=== PATIENT | male | born 1985 | race African-American/Black ===

== ENCOUNTER 2025-05-17 10:06 | Emergency (ER) | payer OTHER ==
[~2025-05-17] VITALS: Ht 180.3 cm; Wt 109.0 kg
[2025-05-17 10:13] VITALS: O2SAT 100
[2025-05-17] MEDS: ACETAMINOPHEN 500MG TABLET PO ONE (11:18)
[2025-05-17] MEDS: CYCLOBENZAPRINE 10MG TABLET PO ONE (11:18)
[2025-05-17] MEDS: LIDOCAINE 5% PATCH TOP STA (11:18)
[2025-05-17] MEDS ORDERED: IBUP-1455 MT (12:46)
[2025-05-17] MEDS ORDERED: CYCL10TA21 MT (12:46)
[2025-05-17] MEDS ORDERED: LIDO700A30 TP (12:46)
[2025-05-17 12:50] VITALS: BP 122/87; PULSE 69; RESP 15; TEMP 37.1; O2SAT 100
== END 2025-05-17 12:54 | disposition home or self-care (01) ==
LOC: ER 10:22
DX: S80.812A Abrasion, left lower leg, initial encounter (principal); S09.90XA Unspecified injury of head, initial encounter; W22.8XXA Striking against or struck by other objects, initial encounter; Y93.89 Activity, other specified; Y92.410 Unspecified street and highway as the place of occurrence of the external cause; Y99.8 Other external cause status
CPT/HCPCS: 29260; 73110; 99284